=== PATIENT | female | born 1940 | race Caucasian/White ===

== ENCOUNTER 2018-07-12 18:32 | Emergency (ER) | payer OTHER, MEDICARE, MEDICAID, SELFPAY ==
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
[2018-07-12 18:36] VITALS: BP 142/57; PULSE 78; RESP 14; TEMP 36.7; O2SAT 98
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
--- NOTE | 2018-07-12 18:47 | NUR.NOTE ---
patient examined by MD, POC discharge home , awaiting RCT, patient ambulated steadily to restroom and back, patient eating and drinking Nursing Note:
--- NOTE | 2018-07-12 18:51 | NUR.NOTE ---
RCT paged to obtain next of kin information Nursing Note:
--- NOTE | 2018-07-12 19:22 | NUR.NOTE ---
patient discharged in care of RCT Nursing Note:
--- NOTE | 2018-07-12 19:51 | NUR.NOTE ---
ROM Teran attempted to contact next of kin Fredis (son) no answer and no answering or voice mail Nursing Note:
== END 2018-07-12 19:51 | disposition home or self-care (01) ==
PROVIDERS: Emergency Provider Emergency Medicine; PCP Family Medicine
DX: Z04.1 Encounter for examination and observation following transport accident (principal); V50.6XXA Passenger in pick-up truck or van injured in collision with pedestrian or animal in traffic accident, initial encounter; J44.9 Chronic obstructive pulmonary disease, unspecified
CPT/HCPCS: 99283; 99281

== ENCOUNTER 2019-01-17 16:55 | Outpatient (REF) | payer MEDICARE, MEDICAID, SELFPAY | END 2019-01-17 17:15 | LOC: LBN 16:55 | PROVIDERS: PCP Family Medicine; Visit Provider Family Medicine | DX: R35.0 Frequency of micturition (principal) | CPT/HCPCS: 87077; 87086; 87186 ==

== ENCOUNTER 2019-02-19 10:30 | Outpatient (REF) | payer MEDICARE, MEDICAID, SELFPAY ==
[2019-02-19 11:43] LABS: Anion Gap 11.2 mmol/L (3-11); BUN 26 mg/dL (7-18); CO2 26.8 mmol/L (21.0-32.0); CREATININE 1.12 mg/dL (0.55-1.02); Calcium 8.5 mg/dL (8.5-10.1); Chloride 104 mmol/L (98-107); Estimated GFR 46.81 (mL/min/1.73m2); Glucose 152 mg/dL (70-100); Potassium 4.4 mmol/L (3.5-5.1); Sodium 142 mmol/L (136-145); TSH (W/Ref FT4) 13.37 uIU/mL (0.36-3.74); Vitamin B12 406 pg/mL (193-986)
[2019-02-19 12:04] LABS: FREE T4 0.63 ng/dL (0.76-1.46)
== END 2019-02-19 10:50 ==
LOC: LBN 10:30
PROVIDERS: PCP Family Medicine; Visit Provider Family Medicine
DX: E03.9 Hypothyroidism, unspecified (principal)
CPT/HCPCS: 80048; 82607; 84439; 84443

== ENCOUNTER 2019-03-20 15:51 | Outpatient (REF) | payer MEDICARE, MEDICAID, SELFPAY | END 2019-03-20 16:11 | LOC: LBN 15:51 | PROVIDERS: PCP Family Medicine; Visit Provider Nurse Practitioner Gerontology | DX: R19.7 Diarrhea, unspecified (principal) | CPT/HCPCS: 82272; 87177 ==

== ENCOUNTER 2019-03-22 13:34 | Emergency (ER) | payer MEDICARE, OTHER, MEDICAID, SELFPAY ==
[2019-03-22] VITALS (27 sets, daily range): BP systolic 150–170; BP diastolic 60–76; PULSE 78–96; RESP 17–28; TEMP 36.6–38.1; O2SAT 91–95
--- NOTE | 2019-03-22 13:49 | DI.CT_ITS ---
SYMPTOMS/DIAGNOSIS: ALTERED MENTAL STATUS CRANIAL CT, NONCONTRAST: There is moderate generalized cerebral atrophy. There is no evidence of acute intracranial hemorrhage, mass effect or midline shift. Orbital and temporal bone structures appear intact. Paranasal sinuses are well aerated. Mastoid air cells appear hypoplastic. CONCLUSION: No evidence of acute intracranial process.
--- NOTE | 2019-03-22 13:54 | W.ED.GENAD ---
Discharge Plan Disposition Patient Disposition: SNF (LEVEL 1) [facility] Condition: Stable Discharge Details Chief Complaint: AMS/LOC Clinical Impression: Urinary tract infection Primary Care Provider: Odilia Espinoza ED Provider: Cesar Garcia Agenda Meds and New Rx's Prescriptions: New levofloxacin 750 mg tablet 750 mg PO DAILY Qty: 6 RF: 0 Continued acetaminophen 325 mg Tablet 650 mg PO DAILY PRN PRNRF: 0 levothyroxine [Synthroid] 50 mcg Tablet 100 mcg PO DAILY RF: 0 nitroglycerin [Nitrostat] 0.4 mg Tablet, Sublingual 0.4 mg SUBLINGUAL ONCE RF: 0 metoprolol succinate 25 mg Tablet Extended Release 24 Hr 25 mg PO DAILY RF: 0 ketoconazole 2 % Cream RF: 0 meloxicam 15 mg Tablet 15 mg PO DAILY RF: 0 famotidine 20 mg Tablet 20 mg PO DAILY RF: 0 lactase [Lactaid] 3,000 unit Tablet 3,000 unit PO TID RF: 0 rivastigmine [Exelon] 4.6 mg/24 hr Patch 24 Hour 4.6 mg TRANSDERMAL DAILY RF: 0 Discharge Instructions Instructions: Urinary Tract Infection in Women (ED) Additional Instructions: the cat scan and blood work did not show any concerning findings the urine showed evidence of infection follow up with her primary care provider or provider at the [facility] within a week and discuss if they feel palliative care would be of benefit for her Medical Decision Making 78 yo female with hx of dementia with agitation per chart review who comes in with reported increased agitation and right eye drooping at her [place] [facility] today. She arrives with stable vitals. She knows her name but is unsure of date, time or place. She is at her baseline mental status per chart review and per ems. She reportedly had right eyelid drooping earlier which is not present on mye xam. She has no facial assymetry and is moving all of her extremities with good strength (she kicks at staff members and myself when examined and pushes my hands away during exam with good strengt which on chart review is baseline per her). I spoke with her son who agrees this is more or less her baseline. I dod not suspect cva given no focal findings Given reported possible increase in agitaiton will eval for sdh and hyponatremia. pt's labs show no acute findings other than likely uti. She remains hd stable. Son is at bedside and is comfortable with her being d/c'd back to the [facility]. I did discuss given her severe dementia and severe atrophy of the brain on head ct that meeting with palliative care would likely be of benefit for her and he is going to discuss this furhter with her provider at the [facility]. Will d/c back to the [facility] Differential Diagnosis Differential Diagnosis: hyponatremia, sdh, anemia Medical Records Medical records reviewed: Yes I reviewed the patient's medical records. Imaging Data Radiologic Study: Attestation: I personally reviewed and interpreted this imaging study as follows: Imaging: CT Scan Radiologist's impression: no acute findings per dr. frederick, severe atrophy Lab Data Lab results reviewed: Yes I reviewed the patient's lab results. ECG Data Attestation: I personally reviewed and interpreted this ECG (s) as follows: Prior ECG tracings: not available for review Interpretation: sinus rhythm, rate of 92, pr 124, no acute st t wave ischemic findings HPI General Mode of arrival: EMS. Date/Time Provider Initiated Documentation: 03/22/19 13:35. Limitations to Documentation: altered mental status (dementia). History of Present Illness 78 year old F presents to the emergency department with the chief complaint of agitated, Patient started experiencing this day(s) (1) and it has been intermittent. No relieving factors improve symptom(s), No exacerbating factors reported . Patient did receive the following treatments prior to arrival, none Related Data Home Medications Medication Instructions Recorded Confirmed acetaminophen 650 mg PO DAILY PRN PRN 07/12/18 03/22/19 ketoconazole 07/12/18 levothyroxine [Synthroid] 100 mcg PO DAILY 07/12/18 03/22/19 metoprolol succinate 25 mg PO DAILY 07/12/18 03/22/19 nitroglycerin [Nitrostat] 0.4 mg SUBLINGUAL ONCE 07/12/18 03/22/19 famotidine 20 mg PO DAILY 03/22/19 03/22/19 lactase [Lactaid] 3,000 unit PO TID 03/22/19 03/22/19 levofloxacin 750 mg PO DAILY #6 tab 03/22/19 meloxicam 15 mg PO DAILY 03/22/19 03/22/19 rivastigmine [Exelon] 4.6 mg TRANSDERMAL DAILY 03/22/19 03/22/19 Previous Rx's Medication Instructions Recorded levofloxacin 750 mg PO DAILY #6 tab 03/22/19 Allergies Allergy/AdvReac Type Severity Reaction Status Date / Time acetaminophen [From Percocet] Allergy Unverified 07/12/18 19:45 codeine Allergy Unverified 07/12/18 19:45 doxepin Allergy Unverified 07/12/18 19:45 erythromycin base Allergy Unverified 07/12/18 19:45 oxycodone [From Percocet] Allergy Unverified 07/12/18 19:45 General Stated Complaint: AMS/LOC JERMAIN: 2 Review of Systems Review of Systems ROS Unobtainable: Unobtainable due to mental status PFSH Social History Smoking/Tobacco Use Status: Unknown Do you feel safe in your relationship?: Yes Additional Social history: unable to assess Exam Const General: no acute distress Orientation: alert HENMT Head: normal to inspection Ears: external ears normal General nose exam: external nose normal Mouth: moist mucous membranes Eyes General: appearance normal, both eyes and all related structures Neck Neck: normal visual inspection Resp Effort & Inspection: normal respiratory effort and able to speak in complete sentences Cardio Rate: regular rate Skin General skin exam: no rashes or lesions noted Neuro General: alert Extrem General: normal to inspection Psych Mental Status: mental status grossly normal Course Vital Signs Vital signs: Vital Signs Temperature 36.6 C 03/22/19 13:36 Pulse 86 03/22/19 13:36 Respiratory Rate 17 03/22/19 13:36 Blood Pressure 161/71 H 03/22/19 13:36 Pulse Oximetry 95 03/22/19 13:36 Temperature 36.6 C 03/22/19 13:36 Pulse 86 03/22/19 13:36 Respiratory Rate 17 03/22/19 13:36 Respiratory Effort Non-Labored 03/22/19 13:41 Blood Pressure 161/71 H 03/22/19 13:36 Blood Pressure Position Supine 03/22/19 13:36 Pulse Oximetry 95 03/22/19 13:36 Oxygen Delivery Method Room Air 03/22/19 13:36 Oxygen Flow Rate 0 03/22/19 13:36 Comment 03/22/19 13:36
[2019-03-22 14:03] LABS: Abs Immature Grans 0.08 k/cumm (0.0-0.09); Absolute Basophil Count 0.01 k/cumm (0.0-0.2); Absolute Monocyte Count 1.14 k/cumm (0.11-0.7); Basophils % 0.1; HCT 41.7 % (36.0-46.0); HGB 13.1 g/dL (12.0-15.5); Immature Grans % 0.5; Lymphocytes % 2.1; Mean Corp. HGB Concentration 31.4 g/dL (32.0-36.0); Mean Corpuscular Hemoglobin 28.8 pg (27.0-33.0); Mean Corpuscular Volume 91.6 fL (80-95); Mean Platelet Volume 10.3 fL (8.0-11.0); Monocytes % 7.6; Neutrophils % 89.7; Platelet Count 157 x1000/uL (130-400); RBC 4.55 m/cumm (4.00-5.20); RBC Distribution Width 16.2 % (11.7-14.6); White Blood Cell Count 14.97 k/cumm (4.4-10.8)
[2019-03-22 14:05] LABS: Absolute Lymphocyte Count 0.31 k/cumm (1.2-3.4); Absolute Neutrophil Count 13.43 k/cumm (1.2-6.7)
[2019-03-22 14:26] LABS: ALT 9 U/L (14-59); AST 11 U/L (15-37); Albumin 2.8 g/dL (3.4-5.0); Alkaline Phosphatase 74 U/L (46-116); Anion Gap 12.9 mmol/L (3-11); BUN 37 mg/dL (7-18); Bilirubin, Total 2.5 mg/dL (0.2-1.0); CO2 22.1 mmol/L (21.0-32.0); CREATININE 1.67 mg/dL (0.55-1.02); Calcium 9.2 mg/dL (8.5-10.1); Chloride 105 mmol/L (98-107); Estimated GFR 29.52 (mL/min/1.73m2); Glucose 189 mg/dL (70-100); Magnesium 1.8 mg/dL (1.8-2.4); Potassium 4.4 mmol/L (3.5-5.1); Sodium 140 mmol/L (136-145); Total Protein 7.3 g/dL (6.4-8.2)
[2019-03-22] MEDS: Normal Saline 1,000 ML 1000 ML IV (15:35)
[2019-03-22 15:41] LABS: Bilirubin Negative (Negative); Blood Moderate (Negative); Clarity Cloudy (Clear); Glucose Negative (Negative); Ketones Negative (Negative); Leukocyte Esterase Small (Negative); Nitrite Negative (Negative); Specific Gravity 1.025 (1.005-1.025); pH 5.5 (5-8)
[2019-03-22 15:51] LABS: Bacteria Many HPF (Negative); C & S Indicated? Yes; Casts Negative LPF (Negative); Crystals Negative HPF (Negative); Epithelial Cells Few HPF (Negative); Mucus Heavy (Negative); Other Cells Negative (Negative); RBC >50 (0-2); WBC >50 HPF (0-5)
[2019-03-22] MEDS: levoFLOXacin 500 MG, levoFLOXacin 250 MG 750 MG PO (16:13)
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
[2019-03-22] MEDS: levoFLOXacin 500 MG TAB (16:50)
== END 2019-03-22 17:38 | disposition skilled nursing facility (03) ==
PROVIDERS: Emergency Provider Emergency Medicine; PCP Family Medicine
DX: N39.0 Urinary tract infection, site not specified (principal); F03.91 Unspecified dementia, unspecified severity, with behavioral disturbance
CPT/HCPCS: 36415; 36416; 80053; 82962; 87077; 93005; 96360; 99284; 70450; 81003; 81015; 83735; 85025; 87086; 87186; 93010

== ENCOUNTER 2019-06-05 09:36 | Outpatient (REF) | payer MEDICARE, OTHER, MEDICAID, SELFPAY ==
[2019-06-05 10:26] LABS: Abs Immature Grans 0.01 k/cumm (0.0-0.09); Absolute Basophil Count 0.03 k/cumm (0.0-0.2); Absolute Eosinophil Count 0.22 k/cumm (0.0-0.7); Absolute Monocyte Count 0.54 k/cumm (0.11-0.7); Absolute Neutrophil Count 2.38 k/cumm (1.2-6.7); Basophils % 0.7; Eosinophils % 5.3; HGB 11.5 g/dL (12.0-15.5); Immature Grans % 0.2; Lymphocytes % 23.9; Mean Corp. HGB Concentration 31.1 g/dL (32.0-36.0); Mean Corpuscular Hemoglobin 29.6 pg (27.0-33.0); Mean Corpuscular Volume 95.4 fL (80-95); Monocytes % 12.9; Platelet Count 178 x1000/uL (130-400); RBC 3.88 m/cumm (4.00-5.20); RBC Distribution Width 14.7 % (11.7-14.6); White Blood Cell Count 4.18 k/cumm (4.4-10.8)
[2019-06-05 10:40] LABS: ALT 9 U/L (14-59); AST 13 U/L (15-37); Albumin 3.1 g/dL (3.4-5.0); Alkaline Phosphatase 57 U/L (46-116); Anion Gap 8.9 mmol/L (3-11); BUN 26 mg/dL (7-18); Bilirubin, Total 0.4 mg/dL (0.2-1.0); CO2 25.1 mmol/L (21.0-32.0); CREATININE 1.41 mg/dL (0.55-1.02); Calcium 8.9 mg/dL (8.5-10.1); Chloride 110 mmol/L (98-107); Glucose 100 mg/dL (74-106); Potassium 4.9 mmol/L (3.5-5.1); Sodium 144 mmol/L (136-145); Total Protein 5.9 g/dL (6.4-8.2)
[2019-06-05 11:08] LABS: FREE T4 1.44 ng/dL (0.76-1.46)
== END 2019-06-05 09:56 ==
LOC: LBN 09:36
PROVIDERS: PCP Family Medicine; Visit Provider Family Medicine
DX: E03.9 Hypothyroidism, unspecified (principal)
CPT/HCPCS: 80053; 84439; 84443; 85025

== ENCOUNTER 2019-08-14 11:07 | Outpatient (REF) | payer MEDICARE, MEDICAID, SELFPAY ==
[2019-08-14 13:25] LABS: Anion Gap 9.1 mmol/L (3-11); BUN 33 mg/dL (7-18); CO2 23.9 mmol/L (21.0-32.0); CREATININE 1.71 mg/dL (0.55-1.02); Calcium 8.6 mg/dL (8.5-10.1); Chloride 108 mmol/L (98-107); Estimated GFR 28.65 (mL/min/1.73m2); Glucose 144 mg/dL (74-106); Potassium 4.9 mmol/L (3.5-5.1); Sodium 141 mmol/L (136-145); TSH (W/Ref FT4) 21.91 uIU/mL (0.36-3.74)
[2019-08-14 14:02] LABS: FREE T4 0.72 ng/dL (0.76-1.46)
== END 2019-08-14 11:27 ==
LOC: LBN 11:07
PROVIDERS: PCP Family Medicine; Visit Provider Family Medicine
DX: E05.90 Thyrotoxicosis, unspecified without thyrotoxic crisis or storm (principal); I25.10 Atherosclerotic heart disease of native coronary artery without angina pectoris; N18.9 Chronic kidney disease, unspecified
CPT/HCPCS: 80048; 84439; 84443

== ENCOUNTER 2019-09-07 08:33 | Outpatient (REF) | payer MEDICARE, MEDICAID, SELFPAY | END 2019-09-07 08:53 | LOC: LBN 08:33 | PROVIDERS: PCP Family Medicine; Visit Provider Family Medicine | DX: E03.9 Hypothyroidism, unspecified (principal); Z53.8 Procedure and treatment not carried out for other reasons | CPT/HCPCS: 84443 ==

== ENCOUNTER 2019-09-10 10:56 | Outpatient (REF) | payer MEDICARE, MEDICAID, SELFPAY ==
[2019-09-10 11:25] LABS: TSH (W/Ref FT4) 36.45 uIU/mL (0.36-3.74)
[2019-09-10 11:58] LABS: FREE T4 0.72 ng/dL (0.76-1.46)
== END 2019-09-10 11:16 ==
LOC: LBN 10:56
PROVIDERS: PCP Family Medicine; Visit Provider Family Medicine
DX: E03.9 Hypothyroidism, unspecified (principal)
CPT/HCPCS: 84439; 84443

== ENCOUNTER 2019-11-06 10:34 | Outpatient (REF) | payer MEDICARE, MEDICAID, SELFPAY ==
[2019-11-06 11:21] LABS: TSH 14.69 uIU/mL (0.36-3.74)
== END 2019-11-06 10:54 ==
LOC: LBN 10:34
PROVIDERS: PCP Family Medicine; Visit Provider Family Medicine
DX: E03.9 Hypothyroidism, unspecified (principal)
CPT/HCPCS: 84443